=== PATIENT | female | born 1930 | race Caucasian/White ===

== ENCOUNTER 2017-11-12 22:14 | Emergency (ER) | payer MEDICAID, MEDICARE, OTHER ==
[~2017-11-12] VITALS: Ht 162.6 cm; Wt 64.9 kg
--- NOTE | 2017-11-12 22:25 | Emergency Room Report ---
History of Present Illness General Chief Complaint: General Complaint Source: Patient, Medical Record, EMS, PMD Present Illness HPI Is an 87-year-old female coming from a senior living. Present with chief complaint of overdose. She was accidentally given a tablet of Dilantin. EMS said it was 100 mg. This occurred around 7 PM. She has no complaint. She is normally self medicated. She was sent in for evaluation. Allergies: Coded Allergies: MORPHINE (Verified Allergy, Unknown, 11/12/17) Patient History Past Medical History: see triage record, old chart reviewed Past Surgical History: other Pertinent Family History: none Social History: Denies: smoking Last Menstrual Period: none Now: No Immunizations: other Reviewed Nursing Documentation: PMH: Agreed, PSxH: Agreed Nursing Documentation-PMH Hx Hypertension: Yes Hx Pacemaker: Yes Hx Diabetes: Yes Review of Systems Eye: Denies: eye pain, blurred vision ENT: Denies: ear pain, nose congestion, throat swelling Respiratory: Denies: cough, shortness of breath Cardiovascular: Denies: chest pain, palpitations Gastrointestinal: Denies: abdominal pain, diarrhea, nausea, vomiting Musculoskeletal: Denies: back pain, joint pain Skin: Denies: rash Neurological: Denies: headache, numbness Endocrine: Denies: increased thirst, increased urine Hematologic/Lymphatic: Denies: easy bruising All Other Systems: negative except mentioned in HPI Physical Exam Vital Signs Date Time Temp Pulse Resp B/P (MAP) Pulse Ox O2 Delivery O2 Flow Rate FiO2 11/12/17 22:15 98.8 60 18 160/72 99 Room Air vitals with high blood pressure Sp02 EP Interpretation: reviewed, normal General Appearance: well appearing, no apparent distress, alert Head: normocephalic, atraumatic Eyes: bilateral eye PERRL, bilateral eye EOMI ENT: hearing grossly normal, normal pharynx Neck: full range of motion, supple, no meningismus Respiratory: chest non-tender, lungs clear, normal breath sounds Cardiovascular #1: regular rate, rhythm, no murmur Gastrointestinal: normal bowel sounds, non tender, no mass, no organomegaly, no bruit, non-distended Musculoskeletal: back normal, normal range of motion Neurologic: alert, oriented x3 Psychiatric: mood/affect normal Skin: warm/dry Medical Decision Making Diagnostic Impression: Primary Impression: Medication administered in error Qualified Codes: T50.901A - Poisoning by unspecified drugs, medicaments and biological substances, accidental (unintentional), initial encounter Additional Impression: Anemia Qualified Codes: D64.9 - Anemia, unspecified ER Course Patient presents with accidental administration of half a dose of Dilantin. Her level is only 1.4. She has no symptoms. She R. he has a pacemaker so written is unlikely. We'll discharge back to senior living. Last Vital Signs Date Time Temp Pulse Resp B/P (MAP) Pulse Ox O2 Delivery O2 Flow Rate FiO2 11/12/17 22:15 98.8 60 18 160/72 99 Room Air Status: unchanged Disposition: XFER SNF Condition: Stable Additional Instructions: Followup with your Dr. in 7 days as needed. Return if symptom worsen. KASHMIR SNOW M.D. Nov 12, 2017 22:25
[2017-11-12] MEDS ORDERED: Sodium Chloride 500ML 500 ML IV ONE (22:30)
[2017-11-12 23:25] LABS: BASOPHILS % (AUTO) 1.5 % (0.0-2.0); LYMPHOCYTES % (AUTO) 28.8 % (20.0-45.0); MEAN CORPUSCULAR HEMOGLOBIN 26.4 PG (27.0-31.0); MEAN CORPUSCULAR HGB CONC 29.4 G/DL (32.0-36.0); MEAN CORPUSCULAR VOLUME 90 FL (80-99); MEAN PLATELET VOLUME 5.7 FL (6.5-10.1); MONOCYTES % (AUTO) 15.2 % (1.0-10.0); NEUTROPHILS % (AUTO) 52.5 % (45.0-75.0); PLATELET COUNT 309 K/UL (150-450); RED BLOOD COUNT 3.28 M/UL (4.20-5.40); RED CELL DISTRIBUTION WIDTH 14.5 % (11.6-14.8); WHITE BLOOD COUNT 5.9 K/UL (4.8-10.8)
[2017-11-12 23:42] LABS: ANION GAP 5 mmol/L (5-15); CALCIUM 10.2 MG/DL (8.5-10.1); CARBON DIOXIDE 30 MMOL/L (21-32); CHLORIDE 97 MMOL/L (98-107); CREATININE 1.4 MG/DL (0.55-1.30); SODIUM 132 MMOL/L (136-145)
[2017-11-13 00:35] VITALS: BP 135/76
[2017-11-13 01:30] VITALS: BP 135/76
--- NOTE | 2017-11-13 16:45 | Cardiology Report ---
APPROVED REPORT EKG Measurement Heart [id number] Atrial Pacemaker Nonspecific intraventricular block Cannot rule out Anterior infarct, age undetermined Abnormal ECG
== END 2017-11-13 01:30 ==
LOC: EDBD 22:14 → EMR 22:40
DX: T42.0X1A Poisoning by hydantoin derivatives, accidental (unintentional), initial encounter (principal); Y92.129 Unspecified place in nursing home as the place of occurrence of the external cause; D64.9 Anemia, unspecified; I10 Essential (primary) hypertension; E11.9 Type 2 diabetes mellitus without complications; Z95.0 Presence of cardiac pacemaker
CPT/HCPCS: 36415; 80048; 80185; 85025; 93005; 96360; 99284